=== PATIENT | male | born 1950 | race Caucasian/White ===

== ENCOUNTER 2017-04-11 11:00 | Emergency (ER) | payer MEDICARE ==
[~2017-04-11] VITALS: Ht 172.7 cm; Wt 75.0 kg
[2017-04-11] MEDS ORDERED: METF-365 PO (11:25)
[2017-04-11] MEDS ORDERED: HERBAL THYROID PO (11:26)
[2017-04-11] MEDS ORDERED: SODIUM CHLORIDE 0.9% 1,000ML IVBOLUS ONE (12:30)
[2017-04-11] MEDS ORDERED: SODIUM CHLORIDE FLUSH 10ML SYR IVF ONE (12:30)
[2017-04-11 12:34] LABS: BLOOD UREA NITROGEN 19 mg/dL (7-18)
[2017-04-11 12:41] VITALS: BP 96/65
[2017-04-11 12:44] LABS: IS PT STATUS REG ER OR PRE ER? YES
== END 2017-04-11 13:41 | disposition home or self-care (01) ==
LOC: ED 12:00
DX: R55 Syncope and collapse (principal); E11.9 Type 2 diabetes mellitus without complications
CPT/HCPCS: 36415; 80048; 82040; 84484; 85025; 93005; 96360; 96361; 99285; J7030